=== PATIENT | male | born 1970 | race Two or more races ===

== ENCOUNTER 2020-10-05 03:32 | Emergency (ER) | payer BC ==
[2020-10-05] MEDS ORDERED: Aspirin 81 MG Tab.Chew PO ONE (03:45)
[2020-10-05 04:04] LABS: BLOOD UREA NITROGEN,BUN 23 mg/dL (7.0-18.0); CARBON DIOXIDE,CO2 26.6 mmol/L (21.0-32.0); CHLORIDE,CL 102 mmol/L (98-107); GLUCOSE RANDOM 379 mg/dL (74-106); POTASSIUM,K 3.8 mmol/L (3.5-5.1); SODIUM,NA 136 mmol/L (136-148)
[2020-10-05] MEDS ORDERED: Morphine 4 MG/ML Syringe IVPUSH ONE (04:10)
[2020-10-05] MEDS ORDERED: Iopamidol 755 MG/ML 500 ML Multipack Bottle IVPUSH STA (04:31)
--- NOTE | 2020-10-05 04:38 | CR ---
INDICATION: Chest pain TECHNIQUE: Chest radiograph 1 view COMPARISON: None FINDINGS: Mediastinum: The mediastinum is normal in appearance. The heart silhouette is normal in size and morphology. Lung: Both lungs are unremarkable in appearance with small lung volumes. No sign of pleural effusion seen. No pneumothorax is identified. Bone and Soft tissue: Unremarkable for age. IMPRESSION: 1. No acute cardiopulmonary disease is seen. Dictated by: Luis Manuel Marie MD @ 10/05/2020 04:36:06 (Electronically Signed)
--- NOTE | 2020-10-05 05:00 | CT ---
INDICATION: chest pain, mild shortness of breath and nausea TECHNIQUE: CT chest with i.v. contrast during the angiographic phase. Coronal and sagittal reformats were obtained. CONTRAST: 100 mL Isovue 370 COMPARISON: None FINDINGS: Cardiovascular: The heart has an unremarkable appearance and size. The pulmonary arteries are unremarkable in appearance. No sign of aneurysm or dissection in the thoracic aorta. Mediastinum: No mass or adenopathy seen. Lung: Moderate mosaic attenuation is present in lung bases, likely due to atelectasis and small airways disease. Pleura and pericardium: No sign of pleural effusion seen. No significant pericardial effusion is present. Chest wall and axilla: No mass or adenopathy seen. Bone: Unremarkable for age. Upper abdomen: There is a cyst in the posterior segment of liver 1.3 cm. There is an exophytic cyst in the upper pole of the left kidney measuring 2 cm. IMPRESSION: 1. No CT evidence of aortic dissection is seen. Intramural hematoma cannot be excluded without noncontrast imaging. Dictated by Luis Manuel Marie MD @ 10/05/2020 4:54:13 AM Please note that all CT scans at this facility use dose modulation, iterative reconstruction, and/or weight-based dosing when appropriate to reduce radiation dose to as low as reasonably achievable. Dictated by: Luis Manuel Marie MD @ 10/05/2020 04:59:45 (Electronically Signed)
--- NOTE | 2020-10-05 05:22 | EDM.PDOC ---
ED HPI GENERAL MEDICAL PROBLEM - General Chief Complaint: Chest Pain Stated Complaint: RT SIDE CHEST PAIN AND PRESSURE Time Seen by Provider: 10/05/20 03:45 - History of Present Illness INITIAL COMMENTS - FREE TEXT/NARRATIVE: CHIEF COMPLAINT(S): Chest pain HISTORY OF PRESENT ILLNESS: This is a 50-year-old man with a past medical history of diabetes mellitus who comes to the emergency department with a chief complaint of chest pain. The patient states that he has been experiencing chest pain since this morning. He describes the pain as achy rated 6-8 out of 10 on the left side without any radiation. He states the pain is worsened when he lifts his left arm. He denies any numbness, tingling, weakness. He denies any diaphoresis, nausea or vomiting. 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 He denies any abdominal pain. He denies any head injury or loss of consciousness. He denies any numbness, tingling, weakness. He states that he does have a history of abnormal EKG but has not had any history of CAD. REVIEW OF SYSTEMS: Constitutional: Denies fever, chills. Eyes: Denies eye pain Ears, Nose, Mouth, & Throat: Denies earache Cardiovascular: Positive for left-sided chest pain Respiratory: Denies shortness of breath Gastrointestinal: Denies Nausea, vomiting, diarrhea, hematochezia. Genitourinary: Denies hematuria Skin:Denies a rash Neurological: Denies blurred vision Psychiatric: Denies depression PAST MEDICAL HISTORY: As per history of present illness and as reviewed below otherwise noncontributory. SURGICAL HISTORY: As per history of present illness and as reviewed below otherwise noncontributory. SOCIAL HISTORY: As per history of present illness and as reviewed below otherwise noncontributory. FAMILY HISTORY: As per history of present illness and as reviewed below otherwise noncontributory. EXAMINATION OF ORGAN SYSTEMS/BODY AREAS: Constitutional: Blood pressure is 147/105, heart rate 80, respiratory rate 22 with an oxygen saturation 95% on room air. Temperature 36.4 General: Middle- aged gentleman who appears to be in a moderate amount of pain. Psychiatric: Appropriate mood and affect. Eyes: No scleral icterus or conjunctival erythema ENMT: Moist mucous membranes. No pharyngeal erythema Cardiovascular: Regular, rate, and rhythm. No gallops, murmurs, or rubs. Bilateral upper extremity pulses symmetric and intact. No peripheral edema. No JVD. There is tenderness to palpation along the left anterior chest wall up to his left shoulder without any skin changes Respiratory: Lungs clear to auscultation bilaterally. No wheezes, rales, or rhonchi. Gastrointestinal: Soft, non-tender, non-distended. Normoactive bowel sounds Genitourinary: No suprapubic tenderness Musculoskeletal: Normal range of motion. Skin: No lesions or abrasions. Neurological: Alert, GCS 15 strength and sensation grossly intact in upper and lower extremities bilaterally MEDICAL DECISION MAKING AND COURSE IN THE ED WITH INTERPRETATION/REVIEW OF DIAGNOSTIC STUDIES: This is a 50-year-old man diabetes mellitus and prior history of abnormal EKG who comes to the emergency department with acute left- sided chest pain radiation to his back who is hypertensive. At this time we did obtain an EKG which did not reveal any acute signs of ischemia. Will obtain labs including CBC, BMP, troponin, D-dimer and obtain a chest x-ray. Dif ferential at this time includes ACS, musculoskeletal strain, dissection. D- dimer will be obtained to differentiate need for CTA. We will provide the patient with morphine IV for pain relief Twelve-lead EKG interpreted by myself. Normal sinus rhythm at a rate of 82beats per minute.Left axis. AR interval is 151 ms. QRS duration is [address] segments are normal without elevations or depressions. No Q waves present. Hypertrophy not noted. There is a left anterior fascicular block. No prior EKGs. Interpretation: Normal sinus rhythm with left anterior fascicular block. Laboratory: CBC is unremarkable. BMP reveals mild elevation in BUN at 23 and hyperglycemia at 379 otherwise unremarkable. Troponin is negative. D-dimer is elevated at 0.90 The radiological images were viewed by myself along with reading the report from the radiologist. Chest x-ray does not reveal any acute cardiopulmonary process. After labs I did discuss patient I like to obtain CTA. He was amenable to this plan. At this time his symptoms had improved. The radiological images were viewed by myself along with reading the report from the radiologist. CTA of the chest does not reveal any evidence of dissection or other abnormality. After imaging I did discuss results with the patient. I did discuss him at this time I do believe this is likely secondary to musculoskeletal strain however given his history I would like him to follow-up with cardiology. He was amenable to discharge at this time and had no further questions. We did discuss pain treatment options. DISPOSITION: Patient will follow up with cardiology in 1 to 2 days CONDITION: Fair PROCEDURES: None FINAL IMPRESSION(S)/DIAGNOSES: 1. Acute left-sided chest pain likely musculoskeletal Tyler Arguelles M.D. Left Upper Chest Pain Score (Numeric/FACES): 10 - Related Data Allergies Allergy/AdvReac Type Severity Reaction Status Date / Time No Known Allergies Allergy Verified 10/05/20 03:50 Home Meds: Home Meds metFORMIN HCl [Metformin ER Gastric] 1,000 mg PO BID 10/05/20 [History] Past Medical History Cardiovascular History: Reports: Hypertension Respiratory History: Reports: Asthma Social & Family History - Family History Cardiac: Reports: Prior Cardiac Arrest - Tobacco Use Tobacco Use Status *Q: Never Tobacco User Second Hand Smoke Exposure: No - Recreational Drug Use Recreational Drug Use: No ED ROS GENERAL - Review of Systems Review Of Systems: See Below ED EXAM, GENERAL - Physical Exam Exam: See Below Course - Vital Signs Last Recorded V/S: Last Vital Signs Temp 36.4 C 10/05/20 03:47 Pulse 81 10/05/20 05:35 Resp 17 10/05/20 05:35 BP 128/79 10/05/20 05:35 Pulse Ox 98 10/05/20 05:35 - Orders/Labs/Meds Labs: Laboratory Tests 10/05/20 10/05/20 10/05/20 Range/Units 03:40 03:40 03:40 WBC 6.52 (4.0-11.0) K/uL RBC 4.81 (4.50-5.90) M/uL Hgb 15.1 (13.0-17.0) g/dL Hct 44.4 (38.0-50.0) % MCV 92.3 (80.0-98.0) fL MCH 31.4 (27.0-32.0) pg MCHC 34.0 (31.0-37.0) g/dL RDW Std Deviation 42.8 (28.0-62.0) fl RDW Coeff of Sophy 13 (11.0-15.0) % Plt Count 163 (150-400) K/uL MPV 11.70 (7.40-12.00) fL Neut % (Auto) 56.1 (48.0-80.0) % Lymph % (Auto) 30.4 (16.0-40.0) % [place] % (Auto) 8.3 (0.0-15.0) % Eos % (Auto) 4.9 (0.0-7.0) % Baso % (Auto) 0.3 (0.0-1.5) % Neut # (Auto) 3.7 (1.4-5.7) K/uL Lymph # (Auto) 2.0 (0.6-2.4) K/uL [place] # (Auto) 0.5 (0.0-0.8) K/uL Eos # (Auto) 0.3 (0.0-0.7) K/uL Baso # (Auto) 0.0 (0.0-0.1) K/uL Nucleated RBC % 0.0 /100WBC Nucleated RBCs # 0 K/uL INR 0.93 D-Dimer, Quantitative (0.0-0.50) mg/L FEU Sodium 136 (136-148) mmol/L Potassium 3.8 (3.5-5.1) mmol/L Chloride 102 (98-107) mmol/L Carbon Dioxide 26.6 (21.0-32.0) mmol/L BUN 23 H (7.0-18.0) mg/dL Creatinine 1.0 (0.8-1.3) mg/dL Est Cr Clr Drug Dosing 86.41 mL/min Estimated GFR (MDRD) > 60.0 ml/min Glucose 379 H (74-106) mg/dL Calcium 8.8 (8.5-10.1) mg/dL Magnesium 2.0 (1.8-2.4) mg/dL Troponin I < 0.050 (0.000-0.056) ng/mL 10/05/20 Range/Units 03:40 WBC (4.0-11.0) K/uL RBC (4.50-5.90) M/uL Hgb (13.0-17.0) g/dL Hct (38.0-50.0) % MCV (80.0-98.0) fL MCH (27.0-32.0) pg MCHC (31.0-37.0) g/dL RDW Std Deviation (28.0-62.0) fl RDW Coeff of Sophy (11.0-15.0) % Plt Count (150-400) K/uL MPV (7.40-12.00) fL Neut % (Auto) (48.0-80.0) % Lymph % (Auto) (16.0-40.0) % [place] % (Auto) (0.0-15.0) % Eos % (Auto) (0.0-7.0) % Baso % (Auto) (0.0-1.5) % Neut # (Auto) (1.4-5.7) K/uL Lymph # (Auto) (0.6-2.4) K/uL [place] # (Auto) (0.0-0.8) K/uL Eos # (Auto) (0.0-0.7) K/uL Baso # (Auto) (0.0-0.1) K/uL Nucleated RBC % /100WBC Nucleated RBCs # K/uL INR D-Dimer, Quantitative 0.90 H (0.0-0.50) mg/L FEU Sodium (136-148) mmol/L Potassium (3.5-5.1) mmol/L Chloride (98-107) mmol/L Carbon Dioxide (21.0-32.0) mmol/L BUN (7.0-18.0) mg/dL Creatinine (0.8-1.3) mg/dL Est Cr Clr Drug Dosing mL/min Estimated GFR (MDRD) ml/min Glucose (74-106) mg/dL Calcium (8.5-10.1) mg/dL Magnesium (1.8-2.4) mg/dL Troponin I (0.000-0.056) ng/mL Meds: Medications Discontinued Medications Generic Name Dose Route Start Last Admin Trade Name Freq PRN Reason Stop Dose Admin Aspirin 324 mg 10/05/20 03:45 10/05/20 04:00 Aspirin PO 10/05/20 03:46 324 mg ONETIME ONE Administration Iopamidol 100 ml 10/05/20 04:31 10/05/20 04:31 Isovue Multipack-370 (76%) IVPUSH 10/05/20 04:32 100 ml ONETIME STA Administration Morphine Sulfate 4 mg 10/05/20 04:10 10/05/20 04:43 Morphine IVPUSH 10/05/20 04:11 4 mg ONETIME ONE Administration Departure - Departure Time of Disposition: 05:20 Disposition: Home, Self-Care 01 Condition: Fair Clinical Impression: Chest pain Qualifiers: Chest pain type: unspecified Qualified Code(s): R07.9 - Chest pain, unspecified - Discharge Information *PRESCRIPTION DRUG MONITORING PROGRAM REVIEWED*: No *COPY OF PRESCRIPTION DRUG MONITORING REPORT IN PATIENT SHAKILA: No Instructions: Chest Wall Pain, [id number], Angina, [id number] Referrals: Oliver Arteaga MD [Primary Care Provider] - Venu Martell MD [Physician] - Forms: ED Department Discharge Additional Instructions: Your evaluated today on an emergent basis. At this time your work-up is negative. 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 Numbers provided below. We did add you to their quick callback list. If you have any worsening chest pain, shortness of breath, feel like you are in a pass out please return to the emergency department. For the pain it could be secondary to your work and heavy lifting. Please use [id number] Tylenol 500 mg to 1000 mg every 6 hours and ibuprofen 400 mg every 6 hours for the next 48 hours then use as needed. Do the stretches that we discussed. You may also use [id number] Voltaren cream up to 4 times a day to the affected areas or lidocaine cream 4 times a day to the affected area. Please follow-up with your primary care physician on Monday. The patient is informed of any results of their evaluation and diagnostic workup and all questions are answered. They are given discharge instructions and return precautions. The patient is stable for discharge. The patient states they understand and agree with the plan and that they will return if their symptoms get worse or if they have any new concerns. The following information is given to patients seen in the emergency department who are being discharged to home. This information is to outline your options for follow-up care. We provide all patients seen in our emergency department with a follow-up referral. The need for follow-up, as well as the timing and circumstances, are variable depending upon the specifics of your emergency department visit. If you don't have a primary care physician on staff, we will provide you with a referral. We always advise you to contact your personal physician following an emergency department visit to inform them of the circumstance of the visit and for follow-up with them and/or the need for any referrals to a consulting specialist. The emergency department will also refer you to a specialist when appropriate. This referral assures that you have the opportunity for follow-up care with a specialist. All of these measure are taken in an effort to provide you with optimal care, which includes your follow-up. Under all circumstances we always encourage you to contact your private physician who remains a resource for coordinating your care. When calling for follow-up care, please make the office aware that this follow-up is from your recent emergency room visit. If for any reason you are refused follow-up, please contact the [facility] Emergency Department at and asked to speak to the emergency department charge nurse. Sepsis Event Note (ED) - Evaluation Sepsis Screening Result: No Definite Risk
== END 2020-10-05 05:34 | disposition home or self-care (01) ==
LOC: MW.ED 03:32
DX: R07.9 Chest pain, unspecified (principal); J45.909 Unspecified asthma, uncomplicated; I10 Essential (primary) hypertension; E11.9 Type 2 diabetes mellitus without complications; Z79.84 Long term (current) use of oral hypoglycemic drugs
CPT/HCPCS: 36415; 71045; 71275; 80048; 83735; 84484; 85025; 85379; 85610; 96374; 99285; A9270; J2270; Q9967; 93010; 99284

== ENCOUNTER 2020-11-04 14:19 | Emergency (ER) | payer BC ==
[2020-11-04] MEDS ORDERED: Lactated Ringers 1,000 ML IV ONE (14:43)
[2020-11-04] MEDS ORDERED: Sodium Chloride 0.9% 10 ML Syringe FLUSH PRN (14:43)
[2020-11-04] MEDS ORDERED: Sodium Chloride 0.9% 2.5 ML Syringe FLUSH PRN (14:43)
--- NOTE | 2020-11-04 14:48 | EDM.PDOC ---
ED HPI GENERAL MEDICAL PROBLEM - General Chief Complaint: General Stated Complaint: POSSIBLE COVID Time Seen by Provider: 11/04/20 14:20 Source of Information: Reports: Patient History Limitations: Reports: No Limitations - History of Present Illness INITIAL COMMENTS - FREE TEXT/NARRATIVE: 50-year-old male with history of type 2 diabetes presents with symptoms concerning for COVID since last Monday. He was exposed to his boss who was tested positive for Covid last . He presents complaining of fevers, dyspnea, dry cough, loss of taste and smell, chills, myalgia, generalized malaise. He has had no appetite over the past 3 days. He claims he has not eaten or drank anything over the past 3 days due to poor appetite. He also notes diffuse abdominal aching sensation. ROS: A 10-point review of systems, other than pertinent positives and negatives as stated per HPI, is otherwise negative Past medical history: No additional pertinent history Past Surgical history: No additional pertinent history Social history: No additional pertinent history Family history: No additional pertinent history PHYSICAL EXAM General: AOx4, GCS = 15, No distress HEENT: dry mucous membrane Neck: supple, no meningismus, no Kernig or Brudzinski Cardiac: S1S2 tachycardia Respiratory: CTAB, no crackles or rales, no wheezing Abdomen: Soft, nontender, no rebound or guarding, nondistended, no pulsatile mass. Back: nontender Musculoskeletal: NVI distally, no deformity Neuro: No focal deficits, CN 2 - 12 WNL. Abdominal Pain Score (Numeric/FACES): 4 - Related Data Allergies Allergy/AdvReac Type Severity Reaction Status Date / Time No Known Allergies Allergy Verified 11/04/20 14:32 Home Meds: Home Meds metFORMIN HCl [Metformin ER Gastric] 1,000 mg PO BID 10/05/20 [History] Benzonatate 100 mg PO BID #10 capsule 11/04/20 [Rx] Past Medical History Cardiovascular History: Reports: Hypertension Respiratory History: Reports: Asthma Social & Family History - Family History Cardiac: Reports: Prior Cardiac Arrest - Tobacco Use Tobacco Use Status *Q: Never Tobacco User - Caffeine Use Caffeine Use: Reports: None - Recreational Drug Use Recreational Drug Use: No ED ROS GENERAL - Review of Systems Review Of Systems: See Below (see dictation) ED EXAM, GENERAL - Physical Exam Exam: See Below (see dictation) Course - Vital Signs Last Recorded V/S: Last Vital Signs Temp 98.6 F 11/04/20 14:32 Pulse 98 11/04/20 15:37 Resp 16 11/04/20 15:37 BP 110/77 11/04/20 15:37 Pulse Ox 96 11/04/20 15:37 - Orders/Labs/Meds Orders: Active Orders 24 hr Category Date Time Status Cardiac Monitoring [RC] . DIRECTED Care 11/04/20 14:43 Active Sodium Chloride 0.9% [Saline Flush] Med 11/04/20 14:43 Active 10 ml FLUSH ASDIRECTED PRN Sodium Chloride 0.9% [Saline Flush] Med 11/04/20 14:43 Active 2.5 ml FLUSH ASDIRECTED PRN Saline Lock Insert [OM.PC] Stat Oth 11/04/20 14:44 Ordered Medication Orders Sodium Chloride (Saline Flush) 10 ml FLUSH ASDIRECTED PRN PRN Reason: Keep Vein Open Last Admin: 11/04/20 14:47 Dose: 10 ml Documented by: LANA Sodium Chloride (Saline Flush) 2.5 ml FLUSH ASDIRECTED PRN PRN Reason: Keep Vein Open Last Admin: 11/04/20 14:47 Dose: 2.5 ml Documented by: LANA Labs: Laboratory Tests 11/04/20 11/04/20 11/04/20 Range/Units 14:35 14:50 14:50 WBC 5.04 (4.0-11.0) K/uL RBC 4.85 (4.50-5.90) M/uL Hgb 15.2 (13.0-17.0) g/dL Hct 43.2 (38.0-50.0) % MCV 89.1 (80.0-98.0) fL MCH 31.3 (27.0-32.0) pg MCHC 35.2 (31.0-37.0) g/dL RDW Std Deviation 40.1 (28.0-62.0) fl RDW Coeff of Sophy 12 (11.0-15.0) % Plt Count 122 L (150-400) K/uL MPV 11.80 (7.40-12.00) fL Neut % (Auto) 69.5 (48.0-80.0) % Lymph % (Auto) 23.2 (16.0-40.0) % [place] % (Auto) 7.1 (0.0-15.0) % Eos % (Auto) 0.0 (0.0-7.0) % Baso % (Auto) 0.2 (0.0-1.5) % Neut # (Auto) 3.5 (1.4-5.7) K/uL Lymph # (Auto) 1.2 (0.6-2.4) K/uL [place] # (Auto) 0.4 (0.0-0.8) K/uL Eos # (Auto) 0.0 (0.0-0.7) K/uL Baso # (Auto) 0.0 (0.0-0.1) K/uL Nucleated RBC % 0.0 /100WBC Nucleated RBCs # 0 K/uL Sodium 137 (136-148) mmol/L Potassium 3.3 L (3.5-5.1) mmol/L Chloride 101 (98-107) mmol/L Carbon Dioxide 23.3 (21.0-32.0) mmol/L BUN 14 (7.0-18.0) mg/dL Creatinine 1.1 (0.8-1.3) mg/dL Est Cr Clr Drug Dosing 81.11 mL/min Estimated GFR (MDRD) > 60.0 ml/min Glucose 200 H (74-106) mg/dL Calcium 8.7 (8.5-10.1) mg/dL Phosphorus 2.5 L (2.6-4.7) mg/dL Magnesium 1.8 (1.8-2.4) mg/dL Total Bilirubin 0.5 (0.2-1.0) mg/dL AST 29 (15-37) IU/L ALT 42 (14-63) IU/L Alkaline Phosphatase 81 (46-116) U/L Total Protein 8.3 H (6.4-8.2) g/dL Albumin 3.3 L (3.4-5.0) g/dL Globulin 5.0 H (2.6-4.0) g/dL Albumin/Globulin Ratio 0.7 L (0.9-1.6) Lipase 148 (73-393) U/L SARS-CoV-2 RNA ([place]) POSITIVE H (NEGATIVE) Meds: Medications Generic Name Dose Route Start Last Admin Trade Name Freq PRN Reason Stop Dose Admin Sodium Chloride 10 ml 11/04/20 14:43 11/04/20 14:47 Saline Flush FLUSH 10 ml ASDIRECTED PRN Administration Keep Vein Open Sodium Chloride 2.5 ml 11/04/20 14:43 11/04/20 14:47 Saline Flush FLUSH 2.5 ml ASDIRECTED PRN Administration Keep Vein Open Discontinued Medications Generic Name Dose Route Start Last Admin Trade Name Freq PRN Reason Stop Dose Admin Lactated Ringer's 1,000 mls @ 999 mls/hr 11/04/20 14:43 11/04/20 14:47 Ringers, Lactated IV 11/04/20 15:43 999 mls/hr .BOLUS ONE Administration - Re-Assessments/Exams Free Text/Narrative Re-Assessment/Exam: 11/04/20 16:03 After 1 L IV fluids in the ER, the patient improved and is currently stable for discharge. I performed a repeat exam and did not appreciate new abnormal findings. His tachycardia resolved. I advised the patient to return to the ER for reevaluation if symptoms worsened, including fever, worsening pain, or any other worrisome symptoms. I instructed the patient to follow up with their PCP within 2-3 days. MEDICAL DECISION MAKING: I reviewed the patients past medical records, lab and radiographic findings. I discussed the case with the patient. My differential diagnosis included: Covid, dehydration, hyperglycemia. This patient was evaluated for the symptoms described in the history of present illness. They were evaluated in the context of the global COVID-19 pandemic, which necessitated consideration that the patient might be at risk for infection with the SARS-CoV-2 virus that causes COVID-19. Institutional protocols and algorithms that pertain to the evaluation of patients at risk for COVID-19 are in a state of rapid change based on information released by regulatory bodies including the CDC and federal and state organizations. These policies and algorithms were followed during the patient's care. I wore full PPE, N95, face shield, gown and gloves throughout my evaluation and care of this patient. I recommended home isolation. given home isolation instructions. The patient is well appearing, not in respiratory distress, not hypoxic, no tachyneia, no retractions. I instructed patient to return immediately for worsening symptoms, sob, chest pain, lightheadedness or other concerns. Patient voiced understanding and questions answered. Departure - Departure Time of Disposition: 16:04 Disposition: Home, Self-Care 01 Condition: Good Clinical Impression: COVID-19 - Discharge Information *PRESCRIPTION DRUG MONITORING PROGRAM REVIEWED*: Not Applicable *COPY OF PRESCRIPTION DRUG MONITORING REPORT IN PATIENT SHAKILA: Not Applicable Prescriptions: Benzonatate 100 mg PO BID #10 capsule Instructions: What You Should Know About COVID-19 to Protect Yourself and Others - CDC, 10 Things You Can Do to Manage Your COVID-19 Symptoms at Home - CDC, COVID-19 Referrals: Oliver Arteaga MD [Primary Care Provider] - 1 Week Forms: ED Department Discharge Additional Instructions: The need for follow-up, as well as the timing and circumstances, are variable depending upon the specifics of your emergency department visit. If you don't have a primary care physician on staff, we will provide you with a referral. We always advise you to contact your personal physician following an emergency department visit to inform them of the circumstance of the visit and for follow-up with them and/or the need for any referrals to a consulting specialist. The emergency department will also refer you to a specialist when appropriate. This referral assures that you have the opportunity for follow-up care with a specialist. All of these measure are taken in an effort to provide you with o ptimal care, which includes your follow-up. Under all circumstances we always encourage you to contact your private physician who remains a resource for coordinating your care. When calling for follow-up care, please make the office aware that this follow-up is from your recent emergency room visit. If for any reason you are refused follow-up, please contact the [facility] Emergency Department at and asked to speak to the emergency department charge nurse. If you do not have a primary care doctor, please follow up with the clinics below within 3-5 days. [facility] - [facility] [address] [place] [address] [facility] [address] [place] [address] Sepsis Event Note (ED) - Evaluation Sepsis Screening Result: No Definite Risk - Focused Exam Vital Signs: Vital Signs Temp Pulse Resp BP Pulse Ox 11/04/20 15:37 98 16 110/77 96 11/04/20 14:32 98.6 F 116 H 17 125/93 H 96 - My Orders Last 24 Hours: My Active Orders 11/04/20 14:43 Cardiac Monitoring [RC] . DIRECTED Sodium Chloride 0.9% [Saline Flush] 10 ml FLUSH ASDIRECTED PRN Sodium Chloride 0.9% [Saline Flush] 2.5 ml FLUSH ASDIRECTED PRN 11/04/20 14:44 Saline Lock Insert [OM.PC] Stat - Assessment/Plan Last 24 Hours: My Active Orders 11/04/20 14:43 Cardiac Monitoring [RC] . DIRECTED Sodium Chloride 0.9% [Saline Flush] 10 ml FLUSH ASDIRECTED PRN Sodium Chloride 0.9% [Saline Flush] 2.5 ml FLUSH ASDIRECTED PRN 11/04/20 14:44 Saline Lock Insert [OM.PC] Stat
[2020-11-04 15:39] LABS: BLOOD UREA NITROGEN,BUN 14 mg/dL (7.0-18.0); CARBON DIOXIDE,CO2 23.3 mmol/L (21.0-32.0); CHLORIDE,CL 101 mmol/L (98-107); GLUCOSE RANDOM 200 mg/dL (74-106); LIPASE 148 U/L (73-393); POTASSIUM,K 3.3 mmol/L (3.5-5.1); SODIUM,NA 137 mmol/L (136-148)
--- NOTE | 2020-11-04 15:45 | CR ---
INDICATION: COVID, dyspnea TECHNIQUE: Chest 1 view. COMPARISON: 10/05/20 FINDINGS: Cardiovascular and mediastinum: Heart size and vasculature are normal in caliber and appearance. Mediastinum is within normal limits. Lungs and pleural space: Lungs are clear. No sign of infiltrate or mass. No sign of pleural effusion. No pneumothorax. Bones and soft tissues: No significant findings. IMPRESSION: Unremarkable chest. Dictated by: Brenden Marquis MD @ 11/04/2020 15:43:54 (Electronically Signed)
== END 2020-11-04 16:24 | disposition home or self-care (01) ==
LOC: MW.ED 14:19
DX: U07.1 COVID-19 (principal); E11.9 Type 2 diabetes mellitus without complications; J45.909 Unspecified asthma, uncomplicated; Z79.84 Long term (current) use of oral hypoglycemic drugs
CPT/HCPCS: 36415; 71045; 80053; 83690; 83735; 84100; 85025; 87635; 99285; J7120; 99283; U0002

== ENCOUNTER 2021-10-05 19:06 | Emergency (ER) | payer BC ==
[2021-10-05 20:02] LABS: CORONAVIRUS COVID-19 NAA NEGATIVE (NEGATIVE); INFLUENZA A NAA NEGATIVE (NEGATIVE); INFLUENZA B NAA NEGATIVE (NEGATIVE)
[2021-10-05] MEDS ORDERED: Amoxicillin/Clavulanate K 875-125 MG Tab PO ONE (20:08)
== END 2021-10-05 20:20 | disposition home or self-care (01) ==
LOC: MW.ED 19:06
DX: J02.9 Acute pharyngitis, unspecified (principal); H66.003 Acute suppurative otitis media without spontaneous rupture of ear drum, bilateral; Z20.822 Contact with and (suspected) exposure to COVID-19
CPT/HCPCS: 0240U; 87651; 99283; A9270